=== PATIENT | female | born 1950 | race Caucasian/White ===

== ENCOUNTER 2017-02-18 05:45 | Day surgery (SDC) | payer OTHER ==
[~2017-02-18] VITALS: Ht 160 cm; Wt 52.0 kg
[2017-02-18] VITALS (8 sets, daily range): BP systolic 93–149; BP diastolic 55–92; PULSE 63–72; RESP 9–20; O2SAT 97–100
[~2017-02-18 05:45] MED LIST: ACET10DR2 OT; CETI10TA27 PO; CHOL100045 PO; FLUT9.9S NS; IMMODIUM PO; Lactated Ringer's 1,000 ML IV SCH; RANI150C4 PO; SINUTAB PO
[2017-02-18] MEDS ORDERED: fentaNYL-PF 50 mCg/mL 2 mL Inj ONE (05:46)
[2017-02-18] MEDS ORDERED: Dexamethasone 4 mg/mL Inj ONE (05:46)
[2017-02-18] MEDS ORDERED: Ondansetron 2 mg/mL 2 mL Inj ONE (05:46)
[2017-02-18] MEDS ORDERED: Propofol 10,000 mCg/mL 20 mL Inj ONE (05:46)
[2017-02-18] MEDS ORDERED: Bupivacaine Liposome 1.3% 20 mL Inj INFILTRATE ONE ×2 (06:00→07:55)
--- NOTE | 2017-02-18 07:18 | PCM.HPANE ---
Patient Data Surgeon Admitting Provider: Attending Provider:Alejo Cornejo MD Primary Care Physician:Elda Perez MD Other Provider:Rupal Arnoldingham Anesthesia Reason for Visit Anal Cancer, External Hemorrhoids Ht/WT & BMI Height (Feet): 5 Height (Inches): 3 Weight (Kilograms): 52 Body Mass Index 20.00 Allergies Coded Allergies: Sulfa (Sulfonamide Antibiotics) (Verified Allergy, Unknown, UNKNOWN, ) erythromycin base (Verified Adverse Reaction, Severe, gi upset, 02/17/17) codeine (Verified Adverse Reaction, Unknown, UNKNOWN, 02/17/17) STATES TOLERATES HYDROCODONE AND OXYCODONE Past Anesthesia History Anesthesia History: Positive for:: Anesthesia Reactions (PONV-HAS HAD GOOD SUCCESS W/ SCOP PATCHES), Denies:: Abnormal Airway, Difficult Intubation, Fam Anesthesia Reaction, Fam Malignant Hypertherm, Malignant Hyperthermia Diabetes History Hx Diabetes?: No MRSA MRSA: No Medications Home Meds Incl Beta Gary: No Reported Medications [Immodium] No Conflict Check1-2 Mg PO DAILY PRN PRN 06/10/16 Cholecalciferol (Vitamin D3) (Vitamin D)1,000 Unit Capsule5,000 Unit PO DAILY # 1 BOTTLE Ref 0 06/10/16 [Sinutab] No Conflict Check1 Tab PO TID PRN PRN 06/10/16 Fluticasone Propionate (Flonase Allergy Relief)50 Mcg/Actuation [place].susp9.9 Ml NS DAILY PRN PRN 06/10/16 Cetirizine HCl (All Day Allergy)10 Mg Tab.chew10 Mg PO DAILY PRN PRN 06/10/16 Ranitidine 150 Mg Tstyloh223 Mg PO BID Ref 0 03/24/16 Acetic Acid/Hydrocortisone (Acetasol Hc Ear Drops)10 Ml Drops2 Gtts OT BID PRN For Pain 10/28/15 Discontinued Reported Medications Diazepam 5 Mg Tablet2.5-5 Mg PO DAILY PRN For Anxiety Ref 0 06/10/16 History History of ENT Problems?: No HEENT History: Positive for:: Sinus Problem (SEASONAL ALLERGIES) Denies:: Abnormal Airway Cataracts Difficult Intubation Dysphagia Hearing Problem TMJ Denture Type: None Teeth Condition: Within Normal Limits Hx of Heart Problems?: No Cardiovascular History: Denies:: AICD Congestive Heart Failure Edema Heart Murmur Hypertension Irregular Heartbeat Pacemaker Peripheral Vascular Rheumatic Fever Thrombophlebitis Valvular Heart Disease Hx of Respiratory Problem?: No Respiratory History: Denies:: Asthma COPD Emphysema Oxygen Administration Pneumonia Tuberculosis Use of C-PAP Machine Hx Neurologic Problems?: Yes Neurological History: Positive for:: Headaches Denies:: Alzheimer's Disease CVA Dementia Dizziness Multiple Sclerosis Parkinson's Disease Seizures TIA Hx of GI Problems?: Yes Gastrointestinal History: Positive for:: Gastroesphageal Reflux Hx of Problems?: Yes Genitourinary History: Positive for:: Kidney Stones (passed without surgery) Denies:: HX of Hemodialysis Urinary Tract Infection HX of Peritoneal Dialysis: No Female Hx: Denies:: Currently Endometriosis Pelvic Inflammatory Problems with Breasts? Skin History: Positive for:: History Skin Disorders? 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 Denies:: Blood Transfuse Reaction Blood Transfusions Hx Diabetes: No Hx Alcohol Use: NoHx Substance Use: No Smoking Status: Former Smoker Have You Smoked inLast 12 mo: No Stop/Bang Treated for Sleep Apnea?: No Do You Have a CPAP Machine?: No S-Snoring: Do You Snore Loudly: No T-Tired: feel tired, fatigued: No O-Obsered: Observed not breath: No P-Blood Pressure: treated: No B- Body Mass Index > 35 kg/m2: No A- Age over 50: Yes N- Neck Large Circumference: No G- Gender Male: No DAGMAR Total Score: 1 Risk Assessment Category Category 1A: Patient has history of documented sleep apnea, and HAS NOT received any narcotic, sedative or anesthesia administration during this stay. Category 1B: Patient has history of documented sleep apnea, and HAS received any narcotic , sedative or anesthesia administration during this stay Category 2: Patient has SUSPECTED Obstructive Sleep Apnea, and HAS received any narcotic , sedative or anesthesia administration during this stay. Category 3: Patient has SUSPECTED Obstructive Sleep Apnea and HAS NOT received narcotic, sedative or anesthesia administration during this stay. Category 4: Outpatient in Procedural Areas with known sleep apnea or who screen positive for High Risk via the STOP/BANG questionnaire. Exam Exam Vital Signs Vital Signs Date Time Temp Pulse Resp B/P Pulse Ox O2 Delivery O2 Flow Rate FiO2 02/18/17 06:01 36.4 72 16 135/92 100 Room Air General Appearance: Alert, Oriented X3, Cooperative HEENT/AIRWAY: MP 2 Lungs: Clear to Auscultation Heart: Exam Unremarkable Plan Impression Patient chart reviewed, patient interviewed and anesthestic plan with risks, benefits, and alternatives discussed, and informed consent obtained. NPO per Anesth. Guidelines: Yes ASA Physical Status: ASA3 Severe Disease Anesthetic Plan: GA Bene/Risks/Altern/Consents: Yes HP Complete Prior to Induction: Yes Harry Barber MD Feb 18, 2017 07:18
[2017-02-18] MEDS ORDERED: oxyCODONE-Acetamin 5-325 mg Tablet PO PRN (08:25)
--- NOTE | 2017-02-18 08:27 | PCM.SURGOP ---
Surgical Operative Report Date of Service: Feb 18, 2017 Pre Operative Diagnosis Anal cancer, external hemorrhoid, history of radiation proctitis Post Operative Diagnosis Same Procedure: Sigmoidoscopy, anal exam under anesthesia, external hemorrhoidectomy Surgeon and Quality Systems Technician: Surgeon: Alejo Cornejo MD Assistants: Nikolai Hairston MD PGY-3 Indication for Procedure 66-year-old woman who was diagnosed with stage III anal squamous carcinoma in 2015. Her last endoscopic surveillance was in June 2016, which showed mild radiation for this, but no other evidence of residual disease, including anal exam under anesthesia. She has had a long-standing external hemorrhoid, which is small, but bothersome that she wished to have excised if possible. After discussion risks and benefits, she agreed to proceed with flexible sigmoidoscopy , anal exam under anesthesia, possible hemorrhoidectomy. Findings: There was very mild radiation proctitis, but no ulcerations. Because of radiation-induced changes, retroflexion was not possible. Exam of her prior area of anal cancer showed no residual evidence of disease. There was a small 1 cm external hemorrhoid in the right anterior position which was excised and sent for permanent pathology. Procedure Details Initially, a procedural sedation was achieved without general anesthesia. She was placed in the lithotomy position, and a procedural timeout was performed. After digital rectal exam, flexible sigmoidoscopy was performed using the CF Q160S scope. This was inserted to a depth of 30 cm. There was some mild radiation change in the rectum, including decreased distensibility, and some small telangiectasias. There were no ulcerations. No other masses or abnormalities were seen. Retroflexion was attempted, but was not possible because of the decreased caliber of her rectal vault. The scope was removed and flexible sigmoidoscopy was terminated. She was then prepped and draped in sterile fashion. A bivalve anal retractor was inserted, and the area of her prior tumor in the posterior position was evaluated. There was scar tissue from treated cancer, but no mucosal abnormality. Biopsies were not necessary. The remainder of the anal canal was normal. Her long-standing right anterior external hemorrhoid was visualized. It was soft with smooth anoderm. It was fairly small, measuring approximately 1 cm in diameter. The anoderm was fairly normal, so I felt that it was safe for hemorrhoidectomy despite her history of radiation. An elliptical incision was made with cautery, and the external hemorrhoid was excised. It was sent for permanent pathology. Hemostasis was achieved. The anoderm was closed with a running, locking 2-0 chromic suture. Liposomal bupivacaine was injected into the surrounding tissues. Sterile dressings were applied. At the end of the case all needle and sponge counts were correct 2. The patient was awakened from anesthesia without difficulty, and taken to the recovery room in satisfactory condition, having tolerated the procedures well. Complications There were no periprocedural complications identified. Surgical Specimen Removed: Yes Specimen sent to Pathology: Yes Surgical Specimen description: External hemorrhoid Anesthetic Plan: GA Grafts, Implants: None Output, Estimated Blood Loss: 5 Blood Administration during cano: No Drains: None Catheters: None copies to: Elda Perez MD; Darrin Lee MD, Joshua D MD Feb 18, 2017 08:27
--- NOTE | 2017-02-18 08:28 | PCM.DISURG ---
Surgical Discharge Instruction Date of Service Feb 18, 2017 Dates of Hospitalization Date of Hospital Admission Providers Admitting Physician: Primary Care Physician: Elda Perez MD Attending Physician: Alejo Cornejo MD Diet Discharge Diet: No restrictions Activity Discharge Activity-General: Activity as pain allows, No driving while taking narcotic Dressing and Incisional Care Dressing Care: Change soiled dressing Hygiene: May shower Follow Up Plan Follow Up Plan Follow up in clinic is not necessary if your surgical wound is healing well. Please call at any time with questions or concerns. Call your provider for: Fever, Chills, Increasing wound pain Emile Hairston MD Feb 18, 2017 08:28
[2017-02-18] MEDS ORDERED: Ondansetron 2 mg/mL 2 mL Inj IVPUSH PRN (08:45)
[2017-02-18] MEDS ORDERED: Lactated Ringer's 500 ML IV PRN (08:45)
[2017-02-18] MEDS ORDERED: MetoCLOpramide 5 mg/mL 2 mL Inj IVPUSH PRN (08:45)
[2017-02-18] MEDS ORDERED: Phenylephrine 10,000 mCg/mL Inj IVPUSH PRN (08:45)
[2017-02-18] MEDS ORDERED: fentaNYL-PF 50 mCg/mL 2 mL Inj IVPUSH PRN (08:45)
[2017-02-18] MEDS ORDERED: Dexamethasone 4 mg/mL Inj IVPUSH PRN (08:45)
[2017-02-18] MEDS ORDERED: EPHEDrine Sulfate 50 mg/mL Inj IVPUSH PRN (08:45)
[2017-02-18] MEDS ORDERED: Lactated Ringer's 1,000 ML IV SCH (08:45)
[2017-02-18] MEDS ORDERED: HYDROmorphone 1 mg/mL Inj IVPUSH PRN (08:45)
--- NOTE | 2017-02-18 12:36 | PCM.ANEP1 ---
Post Anesthesia PACU Phase 1 Assessment Vital Signs Vital Signs Date Time Temp Pulse Resp B/P Pulse Ox O2 Delivery O2 Flow Rate FiO2 02/18/17 09:12 36.2 63 20 138/77 98 Room Air 02/18/17 09:05 65 15 149/71 97 Room Air 02/18/17 08:50 36.2 64 16 127/75 99 Room Air 02/18/17 08:35 36.0 67 10 102/69 100 Simple Mask 10 02/18/17 08:30 68 10 122/79 100 Simple Mask 10 02/18/17 08:25 65 10 95/61 99 Simple Mask 10 02/18/17 08:23 36.0 70 9 93/55 99 Simple Mask 10 02/18/17 06:01 36.4 72 16 135/92 100 Room Air Anesthetic Administered: GA Level of Alertness: Awake, talking Pain: No Nausea or Vomiting: No CV Function & Hydration Stable: Yes Airway Device: Oralpharangeal Airway Oxygen Delivery: Simple Mask Lungs: Clear to Auscultation PACU Phase 2 Assessment Complications: No Follow up Care: No Patient Instructions Provided: N/A Harry Barber MD Feb 18, 2017 12:36
--- NOTE | 2017-02-24 11:37 | PATH ---
SURGICAL PATHOLOGY Attending Physician:Becki Love CASE STATUS: Signed Out PATIENT NAME: SEAMUS MO PID: [id number] : 1950 DATE COLLECTED:02/18/2017 15:36 SPECIMEN: Hemorrhoids CLINICAL HISTORY: ANAL CANCER EXTERNAL HEMORRHOID 1). EXTERNAL HEMORRHOID FINAL DIAGNOSIS: 1.EXTERNAL HEMORRHOID, BIOPSY: BENIGN SKIN TAG. NEGATIVE FOR DYSPLASIA OR MALIGNANCY. ICD10: L91.8 NOTE: History of anal carcinoma is noted. Deeper levels have been examined without evidence of dysplasia or malignancy. As part of a routine corporate quality assurance manager, Dr. Beth has also reviewed this case and agrees with the diagnosis. GROSS DESCRIPTION: Received in formalin, labeled with the patient' s name and "external hemorrhoid", is one fragment of hughes irregular tissue measuring 1.5 x 1.0 x 0.7 cm. The surgical margin is inked blue. Serially sectioned and totally submitted in one cassette. [id number]) MICRO DESCRIPTION: See diagnosis. ICD-9 CODES: CPT CODES: 1: 80632 Electronically Signed Out Aura Macedo M.D.,[facility] [address], [place] [address] Technical component performed at [facility], [facility] [address], [place], [address]
== END 2017-02-18 23:59 | disposition home or self-care (01) ==
LOC: SAS 05:45
PROVIDERS: ATTEND Student in an Organized Health Care Education/Training Program
DX: L91.8 Other hypertrophic disorders of the skin (principal); C21.0 Malignant neoplasm of anus, unspecified; K64.9 Unspecified hemorrhoids; R51 Headache; K21.9 Gastro-esophageal reflux disease without esophagitis; M19.90 Unspecified osteoarthritis, unspecified site; Z87.442 Personal history of urinary calculi; Z79.899 Other long term (current) drug therapy; Z87.891 Personal history of nicotine dependence
CPT/HCPCS: 45330; 46250; J1100; J2250; J2405; J2704; J3010; J7120